=== PATIENT | male | born 1990 | race Caucasian/White ===

== ENCOUNTER → 2017-08-25 | Outpatient (CLI) | payer OTHER ==
[~2017-08-25] MED LIST: MULT-513 PO; OMEG10007 PO
== END | disposition home or self-care (01) ==
LOC: C.LAB 08:12
PROVIDERS: ATTEND Obstetrics & Gynecology
DX: Z31.41 Encounter for fertility testing (principal)

== ENCOUNTER 2023-12-25 18:06 | Inpatient (IN) ==
[2023-12-25 21:41] LABS: Anion Gap 7 (3-11); BUN Creatinine Ratio 12.9 (10-20); Blood Urea Nitrogen 13 mg/dl (6-23); Calcium 9.3 mg/dl (8.6-10.3); Carbon Dioxide 29 mmol/L (21-32); Chloride 99 mmol/L (98-107); Est GFR (African American) 112.7 ml/min; Est GFR (Non-African American) 97.3 ml/min; Glucose 121 mg/dl (70-99(Fasting)); Potassium 4.1 mmol/L (3.5-5.1); Sodium 135 mmol/L (136-145)
[2023-12-25 21:51] LABS: Hematocrit (blood only) 52.3 % (42.0-52.0); Hemoglobin 18.2 g/dl (14.0-18.0); Mean Corpuscular Hemoglobin 31.3 pg (25.0-34.0); Mean Corpuscular Hgb Conc 34.8 g/dL (32.0-36.0); Platelet Count 187 K/uL (130-400); RDW Coefficient of Variation 12.8 % (11.5-14.5); RDW Standard Deviation 42.1 fL (36.4-46.3); Red Blood Count 5.81 M/uL (4.70-6.10); White Blood Count 9.51 K/ul (4.8-10.8)
[2023-12-25] MEDS: oxyCODONE IR HOME PACK PO ONE (22:49)
[2023-12-25] MEDS: ONDANSETRON INJ 2 MG/ML 2 ML VIAL IV STA (23:19)
[2023-12-25] MEDS: ACETAMINOPHEN 1,000 MG/100 ML VIAL IV STA (23:19)
[2023-12-25] MEDS: MoRPHine SULFATE 4 MG/ML 1 ML CARP\\VIAL IV STA (23:19)
--- NOTE | 2023-12-26 00:59 | Magnetic Resonance Report ---
Exam(s): MRI RIGHT KNEE Without Contrast EXAM: MR Right Lower Extremity Without Intravenous Contrast, Knee CLINICAL HISTORY: Reason for exam: L knee sports injury, inability to ambulate. TECHNIQUE: Multiplanar magnetic resonance images of the right knee without intravenous contrast. COMPARISON: No relevant prior studies available. FINDINGS: Full-thickness, near full width tear of the distal quadriceps tendon. A few strands of lateral fibers are in continuity with the patella. Severe prepatellar soft tissue swelling. Mild knee joint effusion, with mild synovitis. Moderate circumferential subcutaneous edema. Intact menisci, cruciate ligaments, and collateral ligaments. IMPRESSION: Full-thickness, near full width tear of the distal quadriceps tendon. A few strands of lateral fibers are in continuity with the patella. Electronically signed by: Bhaskar Delacruz MD 12/26/23 00:57 AM
--- NOTE | 2023-12-26 01:04 | Magnetic Resonance Report ---
Exam(s): MRI LEFT KNEE Without Contrast EXAM: MR Left Lower Extremity Without Intravenous Contrast, Knee CLINICAL HISTORY: Reason for exam: R knee sports injury, inability to ambulate. TECHNIQUE: Multiplanar magnetic resonance images of the left knee without intravenous contrast. COMPARISON: No relevant prior studies available. FINDINGS: Full-thickness, full width rupture of the distal quadriceps tendon. Moderate prepatellar soft tissue swelling. Mild-moderate knee joint effusion. No osseous bone avulsion of the superior patella. Intact menisci, cruciate ligaments, and collateral ligaments. IMPRESSION: Full-thickness, full width rupture of the distal quadriceps tendon. Moderate prepatellar soft tissue swelling. Mild-moderate knee joint effusion. Electronically signed by: Bhaskar Delacruz MD 12/26/23 01:03 AM
[2023-12-26] MEDS: DOCUSATE SODIUM 100 MG CAP PO SCH (01:25)
--- NOTE | 2023-12-26 01:53 | Emergency Department Note ---
ED Provider Note History of Present Illness Chief Complaint: Knee Injury/Pain Stated Complaint: KNEE INJURY AFTER PLAYING SOFTBALL Time Seen by Provider: 12/25/23 18:50 33-year-old male who presents the emergency department for evaluation of bilateral knee pain. The patient reports that he was playing softball yesterday, and as he was running the homebase, felt simultaneous pops in both knees. The patient reports that he then collapsed downward onto his knees before forward somersaulting. The patient reports prior history of surgery this past July for tears of both quadriceps tendons. The patient reports that after his fall, his knees appeared to be dislocated. He was seen at the [facility] emergency department. He reports that one patella was reduced at the game, and the other self reduced while getting x-rays at the hospital. The patient was placed in bilateral knee immobilizers, and given crutches. The patient reports that his legs are still unstable that he cannot weight-bear. He also reports notable pain, rating his discomfort a 10 out of 10. The patient did have some leftover oxycodone that he took prior to arrival. He reports swelling of the knees as well. He denies any other injuries from his fall. Home Medications Medication Instructions Recorded Confirmed Type oxycodone 5 mg tablet 5 mg PO Q6 PRN pain #12 tabs 08/09/23 12/25/23 Rx Allergies Allergy/AdvReac Type Severity Reaction Status Date / Time No Known Allergies Allergy Verified 12/25/23 20:34 Past Med/Surg History Problem List (Updated 12/26/23 @ 01:53 by Darian Gtz) Sports injury (Acute) Traumatic rupture of right quadriceps tendon (Acute) Traumatic rupture of left quadriceps tendon (Acute) Encounter for removal of sutures (Acute) Work related injury (Acute) Laceration of eyebrow, left (Acute) Medical History No known health problems Chondromalacia patellae of right knee Chondromalacia patellae of left knee Tendinitis of both quadricep tendons Surgical History History of surgery Right Knee Percutaneous Ultrasound Tenotomy History of reduction of closed fracture left arm History of vasectomy [place] teeth removed Social History Smoking Status: Never smoker Tobacco Type: Smokeless Tobacco (Dip or Chew) Second Hand Exposure: No; Do You Dip or Chew Tobacco: Yes (On occasion.); Tobacco Cessation Education Requested by Patient: No Hx Alcohol Use: Yes Alcohol type: beer Hx Substance Use: No Preferred Language: Armenian Communication Ability: Effective 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 Beliefs That Will Affect Care: None Current Living Situation: Family Other Information That Helps Us Care for You: No Feels Safe at Home: Yes Safety Concerns: Feels Safe At This Time Assistive Devices: Brace/Splint/Immobilizer, Hospital Bed and Walker Physical Exam Vital Signs Vital Signs - 24 hr 12/25/23 18:26 12/25/23 18:47 Temperature 36.5 C Temperature Source Temporal Artery Scan Pulse Rate 72 Respiratory Rate 16 20 Respiratory Effort / Characteristics Non-Labored Spontaneous Non-Labored Respiratory Depth Normal Normal Blood Pressure 148/100 H Blood Pressure Mean 116 Pulse Oximetry 97 Oxygen Delivery Method Room Air Sepsis Recent Fever Within 48 Hours No Sepsis New/Unexplained Change in Mental Status No Sepsis Action Taken by Nursing No Action Required CONSTITUTIONAL: Healthy and well nourished. Patient appears in mild to moderate discomfort. HEENT: Normocephalic, atraumatic. MUSCULOSKELETAL: Examination shows soft tissue edema of bilateral anterior knees. The areas of the distal quadriceps tendon does feel soft to palpation. The patient has difficulty straight leg raising. He has generalized discomfort to palpation about the knee joint lines as well, with bilateral joint effusions. No open wounds or abrasions noted. Distal pulses are intact. INTEGUMENTARY: No rash or other significant dermatologic conditions noted. HEMATOLOGIC: No ecchymosis or petechiae. PSYCHIATRIC: Positive affect. NEUROLOGIC: Bilateral lower extremities are sensory intact. Course Course Patient history and physical exam were performed. Nurses notes were reviewed. Vital signs were reviewed as well. The patient initially refused any analgesics. X-rays of bilateral knees shows low riding patellas with joint effusions. No other acute fractures or dislocations are appreciated. Findings were discussed with the patient. I did recommend consultation with Dr. Hernandez, orthopedic surgeon on-call, regarding admission for further workup and emergent MRIs of the knees. Dr. Hernandez did review images, and was concern for bilateral quadriceps tendon ruptures, especially given the patient's prior history of quadriceps tendon injuries. He has requested MRIs be performed, and he will admit the patient for further reevaluation in the morning. At this point, the patient did request analgesics for the pain. IV access was established, and basic labs were ordered, drawn and reviewed without any significant abnormalities. Bilateral MRIs were completed, showing bilateral distal quadricep tendon tears. Please see Dr. Hernandez's dictation for further treatment and final disposition. Administered Medications Docusate Sodium (Docusate Sodium 100 Mg Cap) 100 mg PO BID MARIA C Stop: 01/25/24 00:29 Last Admin: 12/26/23 01:25 Dose: Not Given Documented By: KIRA Discontinued Medications Acetaminophen (Ofirmev) 1,000 mg in 100 mls @ 400 mls/hr IV NOW STA Stop: 12/25/23 23:24 Last Infusion: 12/26/23 00:06 Dose: Infused Documented By: Admin: 12/25/23 23:19 Dose: 400 mls/hr Documented By: LIZ Morphine Sulfate (Morphine Sulfate 4 Mg/Ml 1 Ml Carp\Vial) 4 mg IV NOW STA Stop: 12/25/23 23:11 Last Admin: 12/25/23 23:19 Dose: 4 mg Documented By: LIZ Ondansetron HCl (Ondansetron Inj 2 Mg/Ml 2 Ml Vial) 4 mg IV NOW STA Stop: 12/25/23 23:11 Last Admin: 12/25/23 23:19 Dose: 4 mg Documented By: LIZ Oxycodone HCl (Oxycodone Ir Home Pack) 1 each PO UD ONE Stop: 12/25/23 20:10 Last Admin: 12/25/23 22:49 Dose: Not Given Documented By: [facility] Medical Decision Making Medical Records Attestation: I reviewed the patient's medical records. Home Medications was personally reviewed by me Laboratory Data Attestation: I reviewed the patient's lab results. 12/25/23 20:40 12/25/23 20:40 Imaging Data Attestation: I personally reviewed and interpreted this imaging study as follows: My Impression: My interpretation of bilateral knee x-rays shows mildly low riding patellas without evidence for any fractures or dislocations. Joint effusions are noted. My interpretation of bilateral knee MRIs shows distal quadriceps tendon ruptures with joint effusions. Radiologist reports were also reviewed with concurrence. Radiologist's Impression: Knee MRI 12/25/23 20:22 Exam(s): MRI LEFT KNEE Without Contrast EXAM: MR Left Lower Extremity Without Intravenous Contrast, Knee CLINICAL HISTORY: Reason for exam: R knee sports injury, inability to ambulate. TECHNIQUE: Multiplanar magnetic resonance images of the left knee without intravenous contrast. COMPARISON: No relevant prior studies available. FINDINGS: Full-thickness, full width rupture of the distal quadriceps tendon. Moderate prepatellar soft tissue swelling. Mild-moderate knee joint effusion. No osseous bone avulsion of the superior patella. Intact menisci, cruciate ligaments, and collateral ligaments. IMPRESSION: Full-thickness, full width rupture of the distal quadriceps tendon. Moderate prepatellar soft tissue swelling. Mild-moderate knee joint effusion. Electronically signed by: Bhaskar Delacruz MD 12/26/23 01:03 AM Knee MRI 12/25/23 20:22 Exam(s): MRI RIGHT KNEE Without Contrast EXAM: MR Right Lower Extremity Without Intravenous Contrast, Knee CLINICAL HISTORY: Reason for exam: L knee sports injury, inability to ambulate. TECHNIQUE: Multiplanar magnetic resonance images of the right knee without intravenous contrast. COMPARISON: No relevant prior studies available. FINDINGS: Full-thickness, near full width tear of the distal quadriceps tendon. A few strands of lateral fibers are in continuity with the patella. Severe prepatellar soft tissue swelling. Mild knee joint effusion, with mild synovitis. Moderate circumferential subcutaneous edema. Intact menisci, cruciate ligaments, and collateral ligaments. IMPRESSION: Full-thickness, near full width tear of the distal quadriceps tendon. A few strands of lateral fibers are in continuity with the patella. Electronically signed by: Bhaskar Delacruz MD 12/26/23 00:57 AM [facility] Narrative See ED Course section for further details of today's visit. The patient presents with complaint of bilateral knee injuries while playing softball. The patient reports simultaneous pops in both knees, causing him to collapse. The patient does show me photographs of his knees, consistent with a lateral patellar dislocations. ONe was relocated at the ball field, the second one was spontaneously reduced while undergoing x-rays. Examination does show softness of the quadriceps tendons, concerning for rupture. After discussing the case with Dr. Hernandez, and fact that the patient is unable to ambulate, it was felt that an emergent MRI of both knees were warranted. MRIs confirm bilateral distal quadriceps tendon ruptures. The patient will undergo further surgical management by Dr. Hernandez. Please see his dictation for further treatment and final disposition. Impression Traumatic rupture of left quadriceps tendon, Traumatic rupture of right quadriceps tendon, Sports injury Discharge Plan Visit Data Chief Complaint: Knee Injury/Pain Stated Complaint: KNEE INJURY AFTER PLAYING SOFTBALL ED Provider: Kashif Law ED Midlevel Provider: Darian Gtz Discharge Problem: Traumatic rupture of left quadriceps tendon, Traumatic rupture of right quadriceps tendon, Sports injury Patient Disposition: Admitted As Inpatient Discharge Instructions Interventions: ED Discharge Assessment Last Done: 12/25/23 23:17 Discharge Problem: Traumatic rupture of left quadriceps tendon Qualifiers: Encounter type: initial encounter Qualified Code(s): S76.112A - Strain of left quadriceps muscle, fascia and tendon, initial encounter Traumatic rupture of right quadriceps tendon Qualifiers: Encounter type: initial encounter Qualified Code(s): S76.111A - Strain of right quadriceps muscle, fascia and tendon, initial encounter
--- OUTSIDE RECORDS SUMMARY | 2023-12-26 05:12 | External Medical Summary | Summary of Care ---
Author Name Unknown Organization [facility] Address [address] [place] [address] Phone [phone] Care Team Providers Care Nuclear Equipment Test Engineer Name Role Phone Marifer Hahn PA-C Primary Care Provider + Reason for Referral * Evaluate & Treat - Unlimited Visits (Within 10 days (routine)) - Authorized Specialty Diagnoses / Procedures Referred By Vernon farias Referred To Contact Orthopaedic Surgery / Orthopedics Diagnoses Chronic pain of both knees Marifer Hahn PA-C [address] [place] [address] [place] [address] Referral ID Status Reason Start Date Expiration Date Visits Requested Visits Authorized [id number] Authorized Specialty Services Required 12/25/[phone] Question Answer Referral Priority Within 10 days (routine) Where should this appointment be scheduled? [facility] What body part is the patient being seen for? Thigh/Knee What condition is the patient being seen for? Sprain/Strain/Tear/Other Reason for Visit * Reason Onset Date Comments Referral 12/25/2023 Encounter Details Date Type Department Care Team ([facility] Contact Info) Description 12/25/2023 Telephone Family Practice [facility] [address] [place] [id number] Marifer Hahn PA-C [address] [place], [place] [address] [address] Referral Allergies No known active allergiesdocumented as of this encounter (statuses as of 12/25/2023) Medications Medication Sig Dispensed Refills Start Date End Date Status [place]-3 Fatty Acids (FISH OIL) 1000 MG Capsule Take 1 Capsule by mouth in the morning. Active Cetirizine HCl 10 MG Oral Tablet Chewable (ZyrTEC) Take 1 Tablet by mouth in the morning. Active documented as of this encounter (statuses as of 12/25/2023) Active Problems No known active problems documented as of this encounter (statuses as of 12/25/2023) Resolved Problems Problem Noted Date Diagnosed Date Resolved Date ADVANCE DIRECTIVE INFORMATION 04/08/2005 06/10/2019 Overview: Minor adolescent acne 08/13/2003 06/18/2018 documented as of this encounter (statuses as of 12/25/2023) Immunizations Name Administration Dates Next Due H1N1 2008 Influenza, IM 06/29/2009 HIB PRP-OMP, 3 dose (Pedvax) 1990 Meningococcal Conjugate Vacc ine (Menactra/Menveo) 10/02/2008 OPV - Polio Virus Vaccine (Oral) 1990 Seasonal Influenza, Split, I IV3, With Preserve, Inj 04/23/2010(Deferred: Patient Refused) TDAP, Age 7 and older, IM (Adacel) 08/20,04/23/2010(Deferred: Patient Refused) documented as of this encounter Social History Tobacco Use Types Packs/Day Years Used Date Smoking Tobacco: Never Smokeless Tobacco: Former Comments:quit chewing 6 thierry hs ago Alcohol Use Standard Drinks/Week Comments Yes 0 (1 standard drink = 0.6 oz pur e alcohol) AUDIT-C Answer Date Recorded Frequency of Alcohol Consumption 2-3 times a wee k 06/13/2019 Average Number of Drinks Not on file 020 Frequency of Binge Drinking Not on file 05/29 PHQ-2 Answer Date Recorded PHQ-2 Score -1 06/18/2018 Hunger Vital Sign Answer Date Recorded Within the past 12 months, y ou worried that your food would run out before you got the money to buy more. Patient declined Within the past 12 months, t he food you bought just didn't last and you didn't have money to get more. Patient declined Childcare Answer Date Recorded Do you feel overwhelmed with taking care of a child, family member or friend? No 03/20/2023 Does your family need help f inding childcare? (Household - for ages 0-17 years) Not on file 03/20/2023 Clothing Answer Date Recorded Have you been unable to get clothing when it was really needed? No 03/20/2023 Is your family able to get c lothes or diapers when needed? (Household - for ages 0-17 years) Not on file 03/20/2023 Personal Safety Answer Date Recorded Do you feel unsafe or have concerns for your saf ety? No 03/20/2023 Do you have concerns for you r family's safety? (Household - for ages 0-17 years) Not on file 03/20/2023 Utilities Answer Date Recorded Do you have trouble paying y our heating, water, or electric bill? No 03/20/2023 Is your family able to pay t he heat, water, or electric bill? (Household - for ages 0-17 years) Not on file 03/20/2023 Does your family have access to good internet? (Household - for ages 0-17 years) Not on file 03/20/2023 Employment Status Answer Date Recorded Are you unemployed or without regular income? No 03/20/2023 Does the household have a re gular source of income? (Household - for ages 0-17 years) Not on file 03/20/2023 Social Connections Answer Date Recorded How often do you feel lonely or isolated from th ose around you? Never 03/20/2023 Financial Resource Strain Answer Date R ecorded Do you have any trouble payi ng for your medications, or do you think you might in the future? No 03/20/2023 Does your family have troubl e paying for medicine? (Household - for ages 0-17 years) Not on file 03/20/2023 Transportation Needs Answer Date Record ed READ ONLY Do you have troubl e getting a ride to medical visits or work? Never True 03/20/2023 Does your family have a hard time getting a ride to doctors visits? (Household - for ages 0-17 years) Not on file 03/20/2023 Has lack of transportation k ept you from medical appointments, meetings, work, or from getting things needed for daily living? Check all that apply. (Adult - for ages 18 years and over) Not on file 03/20/2023 Do you (or your family) have trouble finding or paying for a ride (transportation)? (Household - for ages 0-17 years) Not on file 03/20/2023 Housing Stability Answer Date Recorded Do you currently live in a s helter or have no steady place to sleep at night? No 03/20/2023 READ ONLY Do you think you a re at risk of becoming homeless? No 03/20/2023 Does your family worry about paying for your home or becoming homeless? (Household - for ages 0-17 years) Not on file 1 Are you homeless or worried that you might be in the future? (Adult - for ages 18 years and over) Not on file Are you (or your family) abner eless or worried that you might be in the future? (Household - for ages 0-17 years) Not on file Food Insecurity Answer Date Recorded Do you need food for this week? No 03/20/2023 Are you able to get enough f ood for your family? (Household - for ages 0-17 years) Not on file 03/20/2023 Does your family need food t his week? (Household - for ages 0-17 years) Not on file 03/20/2023 Do you always have enough fo od for your family? (Household - for ages 0-17 years) Not on file 03/20/2023 Sex and Gender Information Value Date Recorded Sex Assigned at Male 06/10/2019 11:08 AM EST Gender Identity Male 06/10/2019 11:08 AM EST Sexual Orientation Straight 06/10/2019 11 :08 AM EST Job Start Date Occupation Industry Not on file Not on file Not on file documented as of this encounter Miscellaneous Notes * Telephone Encounter - Marifer Hahn PA-C - 12/25/2023 8:47 AM EDT Please assist in scheduling with ortho. documented in this encounter Plan of Treatment Scheduled Referrals Name Type Priority Associated Diagnoses Order Schedule ORTHOPAEDICS REFERRAL OP Referral Within 10 days (routine) Chronic pain of both knees Ordered: 12/25/2023 Health Maintenance Due Date Last Done Comments HIV Screening 2005 Hepatitis C Screening 2008 Depression Screening 06/18/2019 06/18/2018 COVID-19 Vaccine ( season) 2023 Influenza Vaccine (FLU shot) (#1) 2024 06/29/2009 DTaP,Tdap,and Td Vaccines (8 - Td or Tdap) 03/14/2025 03/14/2015, 08/20/2010, 01/10/2002, Additional history exists Hepatitis B Vaccine Completed 01/19/1999, 01/13/1998, 11/21/1997 MENINGOCOCCAL (MENACTRA/MENVEO) Completed 10/02/2008 HPV (Gardasil) Vaccine Aged Out No lo nger eligible based on patient's age to complete this topic Pneumococcal Vaccine: Pediatrics (0 to 5 Years) and At-Risk Patients (6 to 64 Years) Aged Out No longer eligible based on patient's age to complete this topic documented as of this encounter Medical Devices Not on filedocumented as of this encounter Visit Diagnoses Diagnosis Chronic pain of both knees- Primary documented in this encounter Advance Directives * Full Code (Latest Code Status on File) Date Activated Date Inactivated Comments 06/18/2019 8:25 AM 06/18/2019 1:20 PM This order r eflects the patients wishes and were consensually agreed upon. Care Teams Nuclear Equipment Test Engineer Relationship Specialty Start Date End Date Marifer Hahn PA-C [address] [place] [address] [place] [address] PCP - General Physician Cardiovascular Specialist 06/10/19 documented as of this encounter
--- NOTE | 2023-12-26 06:47 | XRay Report ---
XR knee LT 1 or 2V routine HISTORY: 33 years-old Male L knee injury - sunrise view if tolerated COMPARISON: Left knee MRI of same day TECHNIQUE: 2 views of the left knee FINDINGS: Moderate circumferential soft tissue swelling with moderate size joint effusion. Punctate bone fragme nts are noted within the soft tissues superior to the patella. IMPRESSION: 1. Moderate soft tissue swelling with moderate sized joint effusion. 2. Punctate bone fragments in the suprapatellar tissues compatible with avulsed patellar fracture fra gments associated with the acute full-thickness insertional quadriceps tendon tear. ACT 112: Negative or not required by law. The above report was generated using voice recognition software. It may contain grammatical, syntax o r spelling errors. Electronically signed by: Domingo Cohen M.D. 12/26/2023 6:46 AM
--- NOTE | 2023-12-26 07:40 | XRay Report ---
XR knee RT 1 or 2V routine CLINICAL HISTORY: R knee injury - sunrise view if tolerated TECHNIQUE: 2 views of the right knee were obtained. Comparison: None available at the time of this dictation. FINDINGS: There is no evidence of an acute fracture. Joint spaces are well-preserved. No joint effusion is seen . Soft tissue swelling is seen about the knee. IMPRESSION: Soft tissue swelling without evidence of underlying bony abnormality. ACT 112: Negative or not required by law. Electronically signed by: Sarwat Pichardo M.D. 12/26/2023 7:39 AM
--- NOTE | 2023-12-26 07:45 | History & Physical Report ---
Date of Service December 26, 2023 Assessment & Plan (1) Traumatic rupture of right quadriceps tendon: Plan: Discussed the diagnoses with the patient. Treatment options were discussed. He is a candidate for bilateral quadriceps tendon repairs. I discussed the ra tionale for the surgery, risks and benefits of the surgery, alternatives to surgery, and expected outcomes. Postoperatively he will be required to be in long-leg cast for 6 weeks but can weight-bear as tolerated in the cast. Plan would be to do the surgery tomorrow if he would like to proceed. After answering all of his questions, the patient would like to proceed. Informed consent was signed. He will be n.p.o. after midnight tonight. For today he can get out of bed with his knee immobilizer is keeping his knees in full extension while using a walker but should limit his ambulating to the bathroom and back given the risk of falls. SCDs for DVT prophylaxis. (2) Traumatic rupture of left quadriceps tendon: Admission and Anticipated Discharge Date Admission Date: December 25, 2023 History of Present Illness Primary Care Provider: Sonya Hahn PA-C 33-year-old male with bilateral knee pain. The patient reports that he was playing softball Monday, and as he was running the [employer], felt simultaneous pops in both knees. The patient reports that he then collapsed downward onto his knees before forward somersaulting. The patient reports prior history of surgery this past July for tears of both quadriceps tendons. The patient reports that after his fall, his knees appeared to be dislocated. He was seen at the [place] emergency department. He reports that one patella was reduced at the game, and the other self reduced while getting x-rays at the hospital. The patient was placed in bilateral knee immobilizers, and given crutches. The patient reports that his legs are still unstable that he cannot weight-bear. He also reports notable pain, rating his discomfort a 10 out of 10. The patient did have some leftover oxycodone that he took prior to arrival. He reports swelling of the knees as well. He denies any other injuries from his fall. Orthopedics was consulted for management of the bilateral knee pain. Patient reports she was having difficulty getting around in his knee immobilizers at home. He nearly fell on at least 1 occasion. 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 He reports that the procedure he had for his quadriceps tendon tear is never really worked. He does endorse a past history of testosterone use, but denies any currently. 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 However he says he has not done any squatting since he had the procedures back in July. Allergies Allergy/AdvReac Type Severity Reaction Status Date / Time No Known Allergies Allergy Verified 12/25/23 20:34 Home Medications Medication Instructions Recorded Confirmed Type oxycodone 5 mg tablet 5 mg PO Q6 PRN pain #12 tabs 08/09/23 12/25/23 Rx Past Med/Surg History Problem List Sports injury (Acute) Traumatic rupture of right quadriceps tendon (Acute) Traumatic rupture of left quadriceps tendon (Acute) Encounter for removal of sutures (Acute) Work related injury (Acute) Laceration of eyebrow, left (Acute) Medical History No known health problems Chondromalacia patellae of right knee Chondromalacia patellae of left knee Tendinitis of both quadricep tendons Surgical History History of surgery Right Knee Percutaneous Ultrasound Tenotomy History of reduction of closed fracture left arm History of vasectomy [place] teeth removed Social History Smoking Status: Never smoker Tobacco Type: Smokeless Tobacco (Dip or Chew) Second Hand Exposure: No; Do You Dip or Chew Tobacco: Yes (On occasion.); Tobacco Cessation Education Requested by Patient: No Hx Alcohol Use: Yes Alcohol type: beer Hx Substance Use: No Preferred Language: Syriac Communication Ability: Effective Automatic Lathe Operator Required: No Beliefs That Will Affect Care: None Current Living Situation: Family Other Information That Helps Us Care for You: No Feels Safe at Home: Yes Safety Concerns: Feels Safe At This Time Assistive Devices: Brace/Splint/Immobilizer, Hospital Bed and Walker Physical Exam Physical Exam: on exam he is resting comfortably in bed in no acute distress. Alert and oriented x 3. Bilateral knee exam reveals the patient to have faint bruising on the medial aspect of the knee more on the right than the left. There is a visible depression in the superior aspect of the knee proximal to the patella. He is tender to palpation here. Unable to do an active straight leg raise. Passively I can get him to about 5 degrees of knee hyperextension bilaterally. There is a small abrasion on the right knee over the anterior proximal tibia which appears superficial and noninfected. On the left knee there is a small superficial abrasion laterally also not affected.. Distally has got palpable dorsalis pedis and posterior tibial pulses. He is sensory intact to light touch throughout. Results & Data Results & Data Vital Signs (Past 12 Hours) Vital Signs Temp Pulse Resp BP Pulse Ox Pulse Ox O2 Del Method 12/26/23 06:58 36.4 C L 67 16 133/73 97 Room Air 12/25/23 23:59 36.6 C 66 18 130/80 96 Room Air 12/25/23 23:50 36.6 C 66 18 130/80 96 Room Air 12/25/23 23:50 96 O2 Del Method 12/26/23 06:58 12/25/23 23:59 12/25/23 23:50 12/25/23 23:50 Room Air Diagnostic Findings Bilateral knee x-rays 2 views of each knee done yesterday as well as bilateral knee MRIs are reviewed. There is some abnormal tilt to the patella seen on the x-rays with very slight patella B[place]. On the MRI there is full-thickness tearing of the quadriceps tendons with perhaps some small portion of the vastus lateralis tendon attachment still intact. Code Status & VTE Plan VTE Prophylaxis Plan VTE Prophylaxis will be ordered: Yes Reason for no VTE drug order: Treatment not indicated (1) Traumatic rupture of right quadriceps tendon Encounter type: initial encounter Qualified Code(s): S76.111A - Strain of right quadriceps muscle, fascia and tendon, initial encounter (2) Traumatic rupture of left quadriceps tendon Encounter type: initial encounter Qualified Code(s): S76.112A - Strain of left quadriceps muscle, fascia and tendon, initial encounter
[2023-12-26] MEDS: oxyCODONE HCL IR 5 MG TAB (IMMEDIATE RELEASE) PO PRN (09:54)
[2023-12-27] MEDS: LACTATED RINGER'S 1,000 ML IV SCH (06:16)
[2023-12-27] MEDS ORDERED: ROPIVACAINE 0.5% 5 MG/ML 30 ML VIAL ONE (06:20)
[2023-12-27] MEDS ORDERED: LIDOCAINE 2% 2 ML VIAL/AMP(20MG/ML) INFIL ONE (06:24)
[2023-12-27] MEDS ORDERED: PROPOFOL IV EMULSION 10 MG/ML 20 ML VIAL IV ONE (06:24)
[2023-12-27] MEDS ORDERED: fentaNYL citrate PF 100 MCG/2 ML VIAL ONE (06:24)
[2023-12-27] MEDS ORDERED: MIDAZOLAM HCL 1 MG/ML 2ML VIAL ONE (06:24)
--- NOTE | 2023-12-27 06:34 | Anesthesiology Consultation ---
Date of Service December 27, 2023 Assessment & Plan (1) Encounter for pre-operative examination: Chart Review Chart Review: Acceptable Risk for Surgery and Patient NOT seen in Pre Admission Testing Consults Requested none History Surgery Operation Date: 12/27/23 07:00 Proposed Procedures p Bilateral Quadriceps Tendon Repairs - Julien Hernandez MD Height/Weight Height: 5 ft 10 in Weight: 95.5 kg Allergies Allergy/AdvReac Type Severity Reaction Status Date / Time No Known Allergies Allergy Verified 12/27/23 06:08 Medications Home Medications Medication Instructions Recorded Confirmed Last Taken oxycodone 5 mg tablet 5 mg PO Q6 PRN pain #12 tabs 08/09/23 12/25/23 12/25/23 16:30 Active Medications Generic Name Dose Route Start Last Admin Trade Name Freq PRN Reason Stop Dose Admin Docusate Sodium 100 mg 12/26/23 00:30 12/26/23 20:01 Docusate Sodium 100 Mg Cap PO 01/25/24 00:29 100 mg BID MARIA C Administration Lactated Ringer's 1,000 mls @ 0 mls/hr 12/27/23 06:15 12/27/23 06:16 Lr IV 01/26/24 06:14 15 mls/hr .Q0M MARIA C Administration KVO Oxycodone HCl 5 mg 12/25/23 23:59 12/26/23 21:39 Oxycodone Hcl Ir 5 Mg Tab (Immediate Release) PO 01/08/24 23:58 5 mg Q6 PRN Administration pain NPO Date Last Intake of Fluids: 12/26/23 Time Last Intake of Fluids: 19:30 Date Last Intake of Solids: 12/26/23 Time Last Intake of Solids: 19:30 Past Medical History Medical History No known health problems Chondromalacia patellae of right knee Chondromalacia patellae of left knee Tendinitis of both quadricep tendons Past Surgical History Surgical History History of surgery Right Knee Percutaneous Ultrasound Tenotomy History of reduction of closed fracture left arm History of vasectomy [place] teeth removed Social History Smoking Status: Never smoker Do You Dip or Chew Tobacco: Yes (On occasion.) Hx Alcohol Use: Yes Alcohol type: beer alcohol intake frequency: a few times a week Hx Substance Use: No substance use type: does not use Physical Exam Vital Signs Last Vital Signs Temp 98.1 F 12/27/23 06:08 Pulse 74 12/27/23 06:08 Resp 18 12/27/23 06:08 BP 127/86 12/27/23 06:08 Pulse Ox 96 12/27/23 06:08 O2 Del Method Room Air 12/27/23 06:08 Testing Laboratory Results 12/25/23 20:40 12/25/23 20:40
[2023-12-27] MEDS ORDERED: ONDANSETRON INJ 2 MG/ML 2 ML VIAL IV PRN ×2 (06:35→12:57)
[2023-12-27] MEDS ORDERED: ATROPINE SULFATE 0.1 MG/ML 10ML SYR IV PRN (06:35)
[2023-12-27] MEDS ORDERED: ePHEDrine sulfate 50 MG/ML AMP IV PRN (06:35)
--- NOTE | 2023-12-27 06:41 | Orthopedic Progress Note ---
Date of Service December 27, 2023 Assessment & Plan (1) Traumatic rupture of left quadriceps tendon: Plan: Answered patient's questions about the surgery and aftercare. He continues to want to proceed with the surgery this morning. Surgical sites are marked. Info rmed consent has been signed. Plan on re-admitting to the floor after surgery. PT/OT tomorrow. Hopefully will be able to discharge home tomorrow. (2) Traumatic rupture of right quadriceps tendon: Admission and Anticipated Discharge Date Admission Date: December 25, 2023 Subjective Patient did well yesterday. No changes to his symptoms. He has been NPO since midnight. Physical Exam Physical Exam: on exam he is resting comfortably in bed in no acute distress. Alert and oriented x 3. Bilateral knee exam reveals the patient to have faint bruising on the medial aspect of the knee more on the right than the left. There is a visible depression in the superior aspect of the knee proximal to the patella. He is tender to palpation here. Unable to do an active straight leg raise. Passively I can get him to about 5 degrees of knee hyperextension bilaterally. There is a small abrasion on the right knee over the anterior proximal tibia which appears superficial and noninfected. On the left knee there is a small superficial abrasion laterally also not affected.. Distally has got palpable dorsalis pedis and posterior tibial pulses. He is sensory intact to light touch throughout. Results & Data Vital Signs (Past 12 Hours) Vital Signs Temp Pulse Resp BP Pulse Ox O2 Del Method 12/27/23 06:08 36.7 C 74 18 127/86 96 Room Air 12/26/23 19:32 36.5 C 18 137/82 98 Room Air (1) Traumatic rupture of left quadriceps tendon Encounter type: initial encounter Qualified Code(s): S76.112A - Strain of left quadriceps muscle, fascia and tendon, initial encounter (2) Traumatic rupture of right quadriceps tendon Encounter type: initial encounter Qualified Code(s): S76.111A - Strain of right quadriceps muscle, fascia and tendon, initial encounter
[2023-12-27] MEDS: ceFAZolin 3000MG 3,000 MG/72.5 ML BAG IV SCH (07:10)
[2023-12-27] MEDS ORDERED: ONDANSETRON INJ 2 MG/ML 2 ML VIAL ONE (07:39)
[2023-12-27] MEDS ORDERED: DEXAMETHASONE SOD INJ 4 MG/ML VIAL ONE (07:39)
[2023-12-27] MEDS ORDERED: HYDROmorphone INJ 2 MG/ML SYR/VIAL ONE (07:41)
[2023-12-27] MEDS: BUPIVACAINE/EPINEPHRINE 0.5% MPF 1:200,000 30 ML VIAL ONE (09:58)
[2023-12-27] MEDS ORDERED: GLYCOPYRROLATE 0.2 MG/ML VIAL ONE (10:02)
[2023-12-27] MEDS ORDERED: NEOSTIGMINE METHYLSULFATE 1 MG/ML 10ML VIAL ONE (10:02)
--- NOTE | 2023-12-27 10:47 | Operative Report ---
Post Operative Report Pre & Post Diagnosis Operation Date: 12/27/23 07:00 Pre-Op Diagnosis: Bilateral Quad Tendon Rupture Post-Op Diagnosis: Bilateral Quad Tendon Rupture I identified the patient and participated in the time-out.: Yes Procedure Operation Date: 12/27/23 07:00 Actual Procedures p Bilateral Quadriceps Tendon Repairs - Julien Hernandez MD Surgeon Julien Hernandez M.D. Laboratory Animal Facility Supervisor Layne Badillo PA-C; no fellow or resident available. Estimated Blood Loss 25 Findings Consistent with Post-Op Diagnosis Specimens None Anesthesia Type General Description of Procedure Patient was taken to the operating room, placed under general anesthesia. Time out performed, prepped and draped in routine sterile fashion. He was given 3 gm IV Ancef for surgical prophylaxis preoperatively. I was present during the entire case and assisted with positioning, tissue retraction, irrigation, repair of tendon, insertion of anchors, closure, dressings and casting. Please see Dr. Hernandez's operative report for further detail. Patient was awakened and taken to the recovery room in stable condition. I attest to the content of the Intraoperative Record and any orders documented therein. Any exceptions are noted below.
[2023-12-27] MEDS: fentaNYL citrate PF 100 MCG/2 ML VIAL IV PRN (10:58)
--- NOTE | 2023-12-27 11:06 | Operative Report ---
Post Operative Report Pre & Post Diagnosis Operation Date: 12/27/23 07:00 Pre-Op Diagnosis: Bilateral Quad Tendon Rupture Post-Op Diagnosis: Bilateral Quad Tendon Rupture I identified the patient and participated in the time-out.: Yes Procedure Operation Date: 12/27/23 07:00 Actual Procedures p Bilateral Quadriceps Tendon Repairs - Julien Hernandez MD Surgeon Julien Hernandez MD Contracts Analyst Layne Badillo PA-C; no fellow or resident available. Estimated Blood Loss 25 Findings See Below quadriceps Tendinopathy was noted and both knees. The tendinopathy appeared to be worse on the patellar insertion than the torn and retracted quadriceps tendon. Tendinopathy at the superior pole the patella was debrided and both quadriceps tendons were repaired using 3 double loaded peek corkscrew anchors in each patella as well as 0 Vicryl sutures for the retinacular repair. Specimens None Anesthesia Type General Complications none Disposition Disposition: Recovery Room Indications 33-year-old male, medical history significant for prior testosterone use, previously has been diagnosed with quadriceps tendinopathy and has undergone percutaneous quadriceps tendon tenotomy's this past spring. He never achieved full relief of his quadriceps tendon pain after these procedures. This past weekend he was playing softball running around the bases when he felt pops in both knees and face planted into the infield. Difficulty walking thereafter. Presented to the emergency room on Monday. MRIs were obtained of both knees. I saw the patient yesterday and discussed the diagnosis of bilateral quadriceps tendon tears. We talked about the fact that his quadriceps tendon is not normal with the underlying tendinopathy. Surgery is indicated to allow him to regain the ability to walk. I reviewed all the risks and benefits of surgery, alternatives to surgery, and expected outcomes. After reviewing all these he elected to proceed with surgery. All questions were answered. Informed consent was signed. Description of Procedure Patient was identified in the preoperative holding area where his surgical sites were marked. He was brought back to the operating room was placed on the operating room table and general anesthesia was administered. All bony prominences were padded. Perioperative antibiotics were administered, 3 g of IV cefazolin. He was prepped and draped in the usual sterile fashion. Prior to incision a multidisciplinary timeout was called. All in the room were in agreement. We began with the left quadriceps tendon. Left leg was exsanguinated with an Esmarch bandage. Tourniquet was inflated to 250 mmHg. Total tourniquet time for the left side was 83 minutes. An 8 cm longitudinal incision was made centered over the distal quadriceps. I dissected down through subcutaneous tissues to the level of the fascia. The quadriceps tendon tear was immediately encountered. Hematoma was evacuated from the tear site as well as the joint. We irrigated out the joint with copious amounts normal saline. Dissection was then undertaken medially and laterally to expose the retinacular tears. Once this was complete the quadriceps tendon was inspected. The more superficial rectus femoris layer of the quadriceps tendon extended more distally than the deeper layers of the tendon tear. There was some rubbery tendinopathic tissue in the quadriceps tendon which was carefully debrided using Metzenbaum scissors. Once the tendon been completely prepared we turned our attention toward the patella. As stated above, there was abnormal tendinopathic tissue attached to the superior pole of the patella. This was completely debrided using a fresh #15 blade as well as a rongeur down to healthy bleeding bone. A rasp was used to further stimulate bleeding from the superior pole the patella. Once we had completed repairing the patella I then placed 3 Arthrex 5.5 mm corkscrew double loaded peek anchors. With each of these anchors one of the sutures was passed in a running stitch up and down the quadriceps tendon for at least 8 passes of suture. The tail of the suture was left on the superior surface of the tendon. The other tail the suture was then passed through the tendon to act as a post stitch again, exiting the superior surface of the quadriceps tendon. The second suture was passed in a horizontal mattress fashion adjacent to the suture for each anchor. Once all 6 sutures had been passed we then once again irrigated out the joint. The knee was then brought into full extension. Sutures were then sequentially tied starting with horizontal mattress sutures first while pulling tension on the other sutures. After all the sutures had been tied we had excellent reapproximation of the quadriceps tendon on the superior pole of the patella. 1 set of sutures from each anchor was cut leaving the other set of sutures intact. The sutures were then crisscrossed in order to compress the rectus femoris distal tendon over the anterior aspect of the patella. Sutures were then tied to 1 another. 0 Vicryl suture was then used the close the retinacular tears both medially and laterally. Once this was complete we irrigated out the knee once again. The knee was then flexed to test our repair and he could easily get to 70 degrees without any gapping at the tear site which I was happy with. We then began to close. 2-0 Vicryl sutures wereUsed in interrupted buried fashion for the deep dermal layer. 3-0 Monocryl suture was used in a running subcuticular fashion for the skin. Dermabond and Steri-Strips were placed. Tourniquet was then let down, and the wound was covered with sterile blue towels. Next, the exact same procedure was performed on the right knee. At this point both incisions were injected with a total of 10 cc of half percent Marcaine for postoperative pain control. 4 x 4's were placed followed by sterile soft roll. Bilateral long-leg fiberglass cylindrical cast were then placed holding the knee in 0 degrees of extension. Cast was well molded with a supracondylar mold to minimize the risk of distal migration. Additionally, extra soft roll was placed around the malleoli to decrease the risk of skin irritation. Once the fiberglass had completely hardened the patient was then awoke from anesthesia, transferred onto the hospital bed, then transferred to the recovery room in stable condition. Postoperative course: Patient be readmitted to the floor. He will be weightbearing as tolerated in the cast. Cast will remain on for a total of 6 weeks. He will have physical therapy and Occupational Therapy tomorrow. Aspirin 81 mg twice a day for DVT prophylaxis. I attest to the content of the Intraoperative Record and any orders documented therein. Any exceptions are noted below.
[2023-12-27] MEDS: HYDROmorphone INJ 2 MG/ML SYR/VIAL IV PRN (11:18)
--- NOTE | 2023-12-27 11:18 | Anesthesiology Progress Note ---
Date of Service December 27, 2023 Anesthesia Post Procedure Vital Signs Vital Signs: Temp Pulse Pulse Resp BP BP Pulse Ox 12/27/23 11:15 73 16 126/53 L 96 12/27/23 11:05 66 12 145/79 H 95 12/27/23 10:55 67 12 150/73 H 97 12/27/23 10:45 97.2 F L 69 16 152/77 H 98 12/27/23 06:08 98.1 F 74 18 127/86 96 12/26/23 19:32 97.7 F 18 137/82 98 12/26/23 14:52 97.7 F 68 16 144/76 H 98 O2 Del Method O2 Flow Rate 12/27/23 11:15 Oxymask 4 12/27/23 11:05 Oxymask 4 12/27/23 10:55 Oxymask 4 12/27/23 10:45 Oxymask 6 12/27/23 06:08 Room Air 12/26/23 19:32 Room Air 12/26/23 14:52 Room Air Pain Intensity Bilateral Knee: Pain Intensity: 9 Transfer of Care Handoff Completed per policy Notes Mental Status: alert / awake / arousable and participated in evaluation Patient Amnestic to Procedure: Yes Nausea / Vomiting: adequately controlled Pain: adequately controlled and improving with treatment Airway Patency, RR, SpO2: stable & adequate BP & HR: stable & adequate Hydration State: stable & adequate Anesthetic Complications: no major complications apparent and Pt Satisfied with anesthetic care
[2023-12-27] MEDS: HYDROmorphone INJ 2 MG/ML SYR/VIAL IV STA (11:55)
[2023-12-27] MEDS: LORazepam 0.5 MG in SYRINGE 0.25 ML IV STA (11:57)
[2023-12-27] MEDS: CYCLOBENZAPRINE HCL 5 MG TAB PO STA (12:03)
--- NOTE | 2023-12-27 12:33 | Anesthesiology Progress Note ---
Date of Service December 27, 2023 Anesthesia Post Procedure Vital Signs Vital Signs: Temp Pulse Pulse Resp BP BP Pulse Ox 12/27/23 12:20 73 16 147/81 H 98 12/27/23 12:05 64 18 147/81 H 100 12/27/23 11:50 73 16 126/88 100 12/27/23 11:35 98.1 F 71 12 143/68 H 98 12/27/23 11:25 87 16 141/74 H 96 12/27/23 11:15 73 16 126/53 L 96 12/27/23 11:05 66 12 145/79 H 95 12/27/23 10:55 67 12 150/73 H 97 12/27/23 10:45 97.2 F L 69 16 152/77 H 98 12/27/23 06:08 98.1 F 74 18 127/86 96 12/26/23 19:32 97.7 F 18 137/82 98 12/26/23 14:52 97.7 F 68 16 144/76 H 98 O2 Del Method O2 Flow Rate 12/27/23 12:20 Nasal Cannula 2 12/27/23 12:05 Nasal Cannula 2 12/27/23 11:50 Nasal Cannula 2 12/27/23 11:35 Nasal Cannula 2 12/27/23 11:25 Room Air 12/27/23 11:15 Oxymask 4 12/27/23 11:05 Oxymask 4 12/27/23 10:55 Oxymask 4 12/27/23 10:45 Oxymask 6 12/27/23 06:08 Room Air 12/26/23 19:32 Room Air 12/26/23 14:52 Room Air Pain Intensity Bilateral Knee: Pain Intensity: 5 Transfer of Care Handoff Completed per policy Notes Mental Status: alert / awake / arousable and participated in evaluation Patient Amnestic to Procedure: Yes Nausea / Vomiting: adequately controlled Pain: adequately controlled Airway Patency, RR, SpO2: stable & adequate BP & HR: stable & adequate Hydration State: stable & adequate Anesthetic Complications: no major complications apparent and Pt Satisfied with anesthetic care
[2023-12-27] MEDS ORDERED: diphenhydrAMINE 50 MG/ML VIAL IV PRN (12:57)
[2023-12-27] MEDS ORDERED: HYDROmorphone INJ 0.5 MG/0.5 ML SYR IV PRN (12:57)
[2023-12-27] MEDS ORDERED: NALOXONE HCL 0.4 MG/1 ML VIAL/CARP IV PRN (12:57)
[2023-12-27] MEDS ORDERED: bisacodyL 10 MG SUPP PR PRN (12:57)
[2023-12-27] MEDS ORDERED: MAGNESIUM HYDROXIDE SUSP 30 ML UDC PO PRN (12:57)
[2023-12-27] MEDS ORDERED: diphenhydrAMINE Capsule 25 MG CAP PO PRN (12:57)
[2023-12-27] MEDS: SODIUM CHLORIDE 0.9% 1,000 ML IV SCH (13:26)
--- NOTE | 2023-12-27 13:43 | XRay Report ---
XR knee RT 1 or 2V routine CLINICAL HISTORY: cast TECHNIQUE: 2 views of the right knee were obtained. Comparison: Comparison is made to knee radiographs 12/25/2023 FINDINGS: A cast has been placed about the knee. Joint spaces are well-preserved. A small suprapatellar effusio n is seen. Soft tissue swelling is seen about the knee. IMPRESSION: Interval placement of a cast. Stable swelling and effusion. ACT 112: Negative or not required by law. Electronically signed by: Sarwat Pichardo M.D. 12/27/2023 1:42 PM
--- NOTE | 2023-12-27 13:48 | XRay Report ---
XR knee LT 1 or 2V routine HISTORY: 33 years-old Male cast acute pain of the left knee COMPARISON: MRI 12/25/2023 TECHNIQUE: 2 views of the left knee FINDINGS: Overlying casting material limits evaluation of the fine bone detail. No acute fracture or dislocatio n. Persistent soft tissue swelling with joint effusion. Anchors noted within the patella from distal quadriceps tendon insertional repair. Deep tissue air is likely postoperative. IMPRESSION: Postoperative findings as above. ACT 112: Negative or not required by law. The above report was generated using voice recognition software. It may contain grammatical, syntax o r spelling errors. Electronically signed by: Domingo Cohen M.D. 12/27/2023 1:47 PM
[2023-12-27] MEDS: oxyCODONE HCL IR 5 MG TAB (IMMEDIATE RELEASE) PO PRN (14:56)
[2023-12-27] MEDS: ceFAZolin 2000MG 2,000 MG/15 ML SYR IV SCH (16:36)
[2023-12-27] MEDS: HYDROmorphone INJ 1 MG/ML SYRINGE IV PRN (19:44)
[2023-12-27] MEDS: SENNA 8.6 MG TAB PO SCH (22:11)
[2023-12-27] MEDS: ASPIRIN 81 MG ECTAB PO SCH (22:12)
[2023-12-28] MEDS: ACETAMINOPHEN 325 MG TAB PO PRN (00:02)
[2023-12-28] MEDS: CYCLOBENZAPRINE HCL 10 MG TAB PO PRN (03:27)
[2023-12-28 08:32] LABS: BUN Creatinine Ratio 14.6 (10-20); Calcium 8.8 mg/dl (8.6-10.3); Creatinine Clr Calc Pharmacy 126.9 ml/min; Est GFR (African American) 119.9 ml/min; Est GFR (Non-African American) 103.4 ml/min; Potassium 3.8 mmol/L (3.5-5.1)
[2023-12-28] MEDS: KETOROLAC 30 MG/ML VIAL IV PRN (08:32)
--- NOTE | 2023-12-28 08:33 | Orthopedic Progress Note ---
Date of Service December 28, 2023 Assessment & Plan (1) Pain, postoperative, acute: Plan: Discussed with the patient that I think his high lean muscle mass is causing him to metabolize through his pain medication faster than the normal patient. Therefore I think we need to increase his medication doses and frequency. We will give him 30 mg of IV Toradol now and every 6 hours thereafter. This should also help with swelling. Will give him 1 mg of IV Dilaudid now as well. Finally, I will increase his oxycodone oral dosing from 5 to 10 mg every 4 hours to 10 to 15 mg every 4 hours. He should continue to elevate the bilateral lower extremities while in bed. He can work with physical therapy today, however I want him to minimize his activity so he does not increase amount of swelling in his knees. Do not think we can discharge him home today because of his requirement for IV pain medication. Aspirin for DVT prophylaxis. Hopefully will be able to discharge him home tomorrow. (2) Traumatic rupture of right quadriceps tendon: (3) Traumatic rupture of left quadriceps tendon: Admission and Anticipated Discharge Date Admission Date: December 25, 2023 Subjective Patient seen and examined on a.m. rounds. I received a call last night at 3 AM that he was having cramping in his quads. We tried a prescription for Flexeril. Says this morning that that did not help very much. He is getting some relief from the narcotics but not a lot. Because of the cramping he felt in his legs he got up and walked around yesterday. Does not feel like he could walk around today. He feels like his knees are swollen inside of the cast. No numbness or tingling in his feet. Physical Exam Physical Exam: On exam he is resting comfortably in bed in minimal distress. Bilateral lower extremity exam reveals the cast to be fitting him well. His feet are warm and well-perfused. Sensory intact light touch over the toes. He is able to fire his toe flexors extensors ankle dorsiflexors and plantar flexors without difficulty. Results & Data Vital Signs (Past 12 Hours) Vital Signs Temp Pulse Resp BP Pulse Ox Pulse Ox O2 Del Method 12/28/23 07:56 36.4 C L 72 16 145/84 H 95 Room Air 12/28/23 03:15 36.4 C L 61 18 152/92 H 99 Room Air 12/28/23 01:00 98 12/27/23 23:17 37.0 C 66 18 118/72 97 Room Air O2 Del Method 12/28/23 07:56 12/28/23 03:15 12/28/23 01:00 Room Air 12/27/23 23:17 Diagnostic Findings AP and lateral x-rays of the bilateral knees done yesterday showed the patella in the appropriate position with no evidence of surgical complication. (2) Traumatic rupture of right quadriceps tendon Encounter type: initial encounter Qualified Code(s): S76.111A - Strain of right quadriceps muscle, fascia and tendon, initial encounter (3) Traumatic rupture of left quadriceps tendon Encounter type: initial encounter Qualified Code(s): S76.112A - Strain of left quadriceps muscle, fascia and tendon, initial encounter
[2023-12-28] MEDS: HYDROmorphone INJ 1 MG/ML SYRINGE IV STA (08:35)
[2023-12-28] MEDS: ACETAMINOPHEN 325 MG TAB PO ONE (08:38)
[2023-12-28] MEDS: MULTIVITAMIN TAB PO SCH (08:39)
[2023-12-28] MEDS: oxyCODONE HCL IR 5 MG TAB (IMMEDIATE RELEASE) PO PRN (08:45)
[2023-12-28 09:19] LABS: Hematocrit (blood only) 52.3 % (42.0-52.0); Hemoglobin 18.1 g/dl (14.0-18.0); Mean Corpuscular Hemoglobin 30.9 pg (25.0-34.0); Mean Corpuscular Hgb Conc 34.6 g/dL (32.0-36.0); Mean Corpuscular Volume 89.4 fL (80.0-100.0); Mean Platelet Volume 10.3 fL (9.4-12.4); Platelet Count 190 K/uL (130-400); RDW Coefficient of Variation 12.3 % (11.5-14.5); RDW Standard Deviation 40.4 fL (36.4-46.3); Red Blood Count 5.85 M/uL (4.70-6.10); White Blood Count 13.24 K/ul (4.8-10.8)
[2023-12-28] MEDS: oxyCODONE HCL IR 5 MG TAB (IMMEDIATE RELEASE) PO ONE (13:02)
[2023-12-28] MEDS: ACETAMINOPHEN 500 MG TAB PO SCH (16:48)
--- NOTE | 2023-12-29 09:11 | Orthopedic Progress Note ---
Date of Service December 29, 2023 Assessment & Plan (1) Traumatic rupture of right quadriceps tendon: Plan: The patient was educated regarding today's findings. Conservative care measures were discussed. Moleskin was placed along the top edge of his cast to prevent chafing and abrasion. He was able to get out of bed on his own and stand reasonably well. He will be discharged to home with outpatient therapy. Follow-up in the office in approximately 2 weeks for reassessment with Dr. Hernandez. Continue with ice and elevation frequently to reduce pain and swelling. Prescription for oxycodone 15 mg every 4 hours was sent to the [place] pharmacy. Continue with OTC ibuprofen and Tylenol as well. Call the office with any other concerns. Work excuse was provided to be out of work until March 04. Handicap parking placard form was also completed. (2) Traumatic rupture of left quadriceps tendon: Admission and Anticipated Discharge Date Admission Date: December 25, 2023 Subjective This 33 year old male is seen today in his room. He is postop from bilateral quadriceps tendon repairs. He states his pain has been well-controlled overnight and this morning. He is in minimal pain at this point. He is keeping close tabs on the medications that he has been receiving. He states the combination is currently working. He is receiving oxycodone, Tylenol, and muscle relaxer, and Toradol. He has been out of bed and states he is walking just fine. He is not sure why physical therapy was ordered as he feels he can do everything on his own. He is anxious for discharge today. Physical Exam Physical Exam: General: Well-developed, well-nourished, young male, in no acute distress. Obvious discomfort. Laying in bed. Alert and oriented. Skin: Warm and dry with good turgor. No rashes. Casts are present on both lower extremities. Extensive tattoos on the upper extremities. No abrasions. Musculoskeletal: The patient has intact motor function of the ankles and toes of both legs. He is able to perform straight leg raise of both legs. Casts are in place and are in good condition. Neurologic: Gross sensation is intact across both lower extremities by soft touch. Results & Data Vital Signs (Past 12 Hours) Vital Signs Temp Pulse Pulse Resp BP Pulse Ox O2 Del Method 12/29/23 08:01 36.5 C 89 18 154/87 H 98 Room Air 12/29/23 02:00 36.5 C 85 18 137/82 98 Room Air 12/28/23 22:40 36.4 C L 84 18 139/83 95 Room Air (1) Traumatic rupture of right quadriceps tendon Encounter type: initial encounter Qualified Code(s): S76.111A - Strain of right quadriceps muscle, fascia and tendon, initial encounter (2) Traumatic rupture of left quadriceps tendon Encounter type: initial encounter Qualified Code(s): S76.112A - Strain of left quadriceps muscle, fascia and tendon, initial encounter
--- NOTE | 2023-12-29 12:23 | Discharge Summary ---
Date of Service December 29, 2023 Admission HPI Per Admitting Provider 33-year-old male with bilateral knee pain. The patient reports that he was playing softball Monday, and as he was running the homebase, felt simultaneous pops in both knees. The patient reports that he then collapsed downward onto his knees before forward somersaulting. The patient reports prior history of surgery this past July for tears of both quadriceps tendons. The patient reports that after his fall, his knees appeared to be dislocated. He was seen at the [place] emergency department. He reports that one patella was reduced at the game, and the other self reduced while getting x-rays at the hospital. The patient was placed in bilateral knee immobilizers, and given crutches. The patient reports that his legs are still unstable that he cannot weight-bear. He also reports notable pain, rating his discomfort a 10 out of 10. The patient did have some leftover oxycodone that he took prior to arrival. He reports swelling of the knees as well. He denies any other injuries from his fall. Or opedics was consulted for management of the bilateral knee pain. Patient reports she was having difficulty getting around in his knee immobilizers at home. He nearly fell on at least 1 occasion. He works as a [employer] member and feels unable to perform his job duties. He reports that the procedure he had for his quadriceps tendon tear is never really worked. He does endorse a past history of testosterone use, but denies any currently. 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 However he says he has not done any squatting since he had the procedures back in July. Discharge Data Consultations 12/25/23 20:22 Consult Orthopedic Surgery Stat ED Decision to Admit Stat Procedures Performed Operation Date: 12/27/23 07:00 Actual Procedures p Bilateral Quadriceps Tendon Repairs - Julien Hernandez MD Hospital Course (1) Traumatic rupture of right quadriceps tendon: Patient was admitted to [facility] from the emergency room on December 27, 2023 for bilateral quadriceps tendon repair and plans for surgery on December 28, 2023. He was made n.p.o. after midnight. He was given IV Dilaudid and oxycodone to use as needed for pain control. He was given a regular diet prior to being NPO. His home medications were continued. On December 28, 2023 he underwent bilateral quadricep tendon repairs with Dr. Hernandez. His surgery was performed with general anesthesia. Long-leg bilateral cylinder cast were placed in the operating room. He tolerated the surgery well without any intraoperative complications. Preoperatively he was given 2 g of IV Ancef for surgical prophylaxis which was continued for 24 hours after his procedure. On the day of his surgery he did well out of bed and did not have much pain. He di d a lot of ambulating and then developed severe pain in bilateral knees and felt that the cast were too tight. He was encouraged to rest, ice, elevate and do ankle pumps and take his pain medication to help with the pain. On postoperative day 1 his pain continued to be severe. It was thought that he was undermedicated. His pain medication was adjusted and increased. Physical therapy and Occupational Therapy orders were placed. He was allowed to weight- bear as tolerated with the assistance of a walker. He was instructed to keep his cast on at all times and keep them clean and dry. He was allowed to do full ankle range of motion and hip range of motion bilaterally. Moleskin was applied to the proximal ends of his cast bilaterally for comfort on postoperative day 2. His pain was much controlled on postoperative day 2. He was deemed safe for discharge to his home. During his inpatient stay he tolerated regular diet his vital signs remained stable with some occasional elevations of his blood pressure, he did not develop any postoperative nausea or vomiting, lightheadedness or dizziness. Discharge instructions were reviewed with the patient. All questions were answered. Follow-up has been scheduled. He knows to call with any further problems, questions or concerns (2) Traumatic rupture of left quadriceps tendon: (3) Sports injury:
== END 2023-12-29 13:12 | disposition home or self-care (01) | DRG 502 ==
LOC: ED 18:06 → 3W 20:23